=== PATIENT | male | born 1990 | race Caucasian/White ===

== ENCOUNTER 2020-02-08 12:38 | Observation (INO) ==
[2020-02-08 13:34] LABS: Basophils % 0.4 %; Eosinophils % 0.1 %; Hematocrit 44.4 % (37.5-50.1); Hemoglobin 14.5 g/dL (12.9-16.9); Immature Granulocytes % 0.4 % (0-4); Lymphocytes # 1.2 K/mcL (0.6-4.6); Lymphocytes % 11.5 %; Mean Corpuscular HGB Conc 32.7 g/dL (31.6-35.5); Mean Corpuscular Hemoglobin 26.9 pg (28.0-33.3); Mean Corpuscular Volume 82.2 fL (83.0-100.0); Mean Platelet Volume 9.1 fL (9.4-12.4); Monocytes # 0.2 K/mcL (0.0-1.3); Monocytes % 1.8 %; Platelet Count 335 K/mcL (140-400); Red Cell Distribution Width 13.1 % (11.5-14.5); Segmented Neutrophils % 85.8 %; White Blood Count 10.5 K/mcL (4.3-11.1)
[2020-02-08 13:52] LABS: Alanine Aminotransferase 15 Units/L (7-52); Albumin 4.2 g/dL (3.5-5.7); Albumin/Globulin Ratio 1.6 (1.1-2.2); Alkaline Phosphatase 60 Units/L (34-104); Amylase 37 Units/L (29-103); Aspartate Amino Transferase 17 Units/L (13-39); BUN/Creatinine Ratio 11 (6-26); Bilirubin,Direct 0.1 mg/dL (0.0-0.2); Bilirubin,Indirect 0.8 mg/dL (0.0-1.0); Bilirubin,Total 0.9 mg/dL (0.3-1.0); Blood Urea Nitrogen 10 mg/dL (6-20); Calcium 9.5 mg/dL (8.6-10.3); Carbon Dioxide 29 mEq/L (23-29); Chloride 103 mEq/L (98-107); Globulin 2.6 g/dL (2.4-3.5); Glucose 157 mg/dL (70-105); Lipase 5 Units/L (11-82); Osmolality,Calculated 286 (280-300); Potassium 3.6 mEq/L (3.5-5.1); Sodium 137 mEq/L (136-145); Total Protein 6.8 g/dL (6.4-8.9); eGFR For African Americans > 60 (> 60); eGFR For Non-African Americans > 60 (> 60)
[2020-02-08] MEDS ORDERED: Ketorolac 30 MG/ML VIAL IM ONE (14:27)
[2020-02-08] MEDS ORDERED: Naloxone 0.4 MG/ML INJ IVP PRN (16:34)
[2020-02-08] MEDS: Nicotine 21 MG PATCH.TD24 TD SCH (16:46)
[2020-02-08] MEDS: Acetaminophen 325 MG TABLET PO PRN (17:36)
[2020-02-08] MEDS: hydrOXYzine pamoate 25 MG CAPSULE PO PRN (18:28)
[2020-02-08] MEDS: Ibuprofen 400 MG TABLET PO PRN (18:28)
[2020-02-08] MEDS: Ondansetron 4 MG/2 ML VIAL IVP PRN (18:29)
[2020-02-08] MEDS: polyethylene glycoL 3350 17 GM POWD.PACK PO SCH (18:29)
[2020-02-08] MEDS: Bisacodyl 10 MG RECTAL SUPPOSITORY RC SCH (18:30)
[2020-02-08] MEDS: Ringers Solution, Lactated 1,000 ML IVC SCH (18:31)
[2020-02-08] MEDS ORDERED: Sennosides 8.6 MG TABLET PO ONE (19:56)
[2020-02-08] MEDS ORDERED: Ketorolac 15 MG/ML VIAL IVP ONE (19:57)
[2020-02-08] MEDS ORDERED: tiZANidine 4 MG TABLET PO ONE (20:47)
[2020-02-08] MEDS ORDERED: Milk and Molasses Enema 200 ML RC ONE (21:00)
[2020-02-08] MEDS ORDERED: *HR* Promethazine 25 MG/ML VIAL IVP ONE (22:57)
[2020-02-09 00:39] LABS: Basophils % 0.2 %; Hemoglobin 15.6 g/dL (12.9-16.9); Immature Granulocytes % 0.5 % (0-4); Lymphocytes # 1.9 K/mcL (0.6-4.6); Lymphocytes % 9.5 %; Mean Corpuscular HGB Conc 32.5 g/dL (31.6-35.5); Mean Corpuscular Hemoglobin 26.7 pg (28.0-33.3); Mean Corpuscular Volume 82.1 fL (83.0-100.0); Mean Platelet Volume 9.6 fL (9.4-12.4); Monocytes # 0.6 K/mcL (0.0-1.3); Neutrophils # 17.2 K/mcL (1.6-8.9); Platelet Count 412 K/mcL (140-400); Red Blood Count 5.85 M/mcL (4.19-5.50); Red Cell Distribution Width 13.1 % (11.5-14.5); Segmented Neutrophils % 86.8 %
[2020-02-09 00:41] LABS: White Blood Count 19.8 K/mcL (4.3-11.1)
[2020-02-09 00:50] LABS: Prothrombin Time 11.4 Seconds (9.4-12.1)
[2020-02-09 00:58] LABS: BUN/Creatinine Ratio 14 (6-26); Blood Urea Nitrogen 12 mg/dL (6-20); Calcium 9.5 mg/dL (8.6-10.3); Carbon Dioxide 25 mEq/L (23-29); Chloride 102 mEq/L (98-107); Glucose 119 mg/dL (70-105); Magnesium 1.9 mg/dL (1.6-2.6); Osmolality,Calculated 287 (280-300); Potassium 3.4 mEq/L (3.5-5.1); Sodium 138 mEq/L (136-145); eGFR For African Americans > 60 (> 60); eGFR For Non-African Americans > 60 (> 60)
[2020-02-09] MEDS: Ibuprofen 400 MG TABLET PO PRN (02:49)
[2020-02-09] MEDS: hydrOXYzine pamoate 25 MG CAPSULE PO PRN (02:49)
[2020-02-09] MEDS: Acetaminophen 325 MG TABLET PO PRN (07:53)
[2020-02-09] MEDS: Bisacodyl 10 MG RECTAL SUPPOSITORY RC SCH ×4 (07:54→21:06)
[2020-02-09] MEDS: polyethylene glycoL 3350 17 GM POWD.PACK PO SCH (07:54)
[2020-02-09] MEDS: Nicotine 21 MG PATCH.TD24 TD SCH (07:54)
[2020-02-09] MEDS: Ondansetron 4 MG/2 ML VIAL IVP PRN (08:50)
[2020-02-09] MEDS: Ringers Solution, Lactated 1,000 ML IVC SCH (08:52)
[2020-02-09] MEDS ORDERED: Morphine Sulfate 2 MG/ML SYRINGE IVP ONE (09:19)
[2020-02-09] MEDS ORDERED: Methylnaltrexone 12 MG/0.6 ML SYRINGE SQ ONE (09:24)
[2020-02-09] MEDS ORDERED: Lidocaine 4% CREAM (LMX) 5 GM TP PRN (09:26)
[2020-02-09] MEDS: *HR* LORazepam 2 MG/ML VIAL IVP PRN ×2 (10:20→16:35)
[2020-02-09] MEDS: Milk and Molasses Enema 200 ML RC SCH ×3 (11:15→21:06)
[2020-02-09 11:52] LABS: Estimated Average Glucose 131 mg/dl
[2020-02-10] MEDS: *HR* LORazepam 2 MG/ML VIAL IVP PRN (00:24)
[2020-02-10] MEDS: Milk and Molasses Enema 200 ML RC SCH ×2 (00:43→07:49)
[2020-02-10 05:33] LABS: Hematocrit 49.9 % (37.5-50.1); Hemoglobin 16.6 g/dL (12.9-16.9); Mean Corpuscular HGB Conc 33.3 g/dL (31.6-35.5); Mean Corpuscular Hemoglobin 26.7 pg (28.0-33.3); Mean Corpuscular Volume 80.2 fL (83.0-100.0); Mean Platelet Volume 9.6 fL (9.4-12.4); Platelet Count 426 K/mcL (140-400); Red Blood Count 6.22 M/mcL (4.19-5.50); Red Cell Distribution Width 13.4 % (11.5-14.5); White Blood Count 17.6 K/mcL (4.3-11.1)
[2020-02-10 05:53] LABS: BUN/Creatinine Ratio 18 (6-26); Blood Urea Nitrogen 15 mg/dL (6-20); Calcium 10.2 mg/dL (8.6-10.3); Carbon Dioxide 25 mEq/L (23-29); Chloride 97 mEq/L (98-107); Glucose 109 mg/dL (70-105); Osmolality,Calculated 277 (280-300); Potassium 3.8 mEq/L (3.5-5.1); Sodium 133 mEq/L (136-145); eGFR For African Americans > 60 (> 60); eGFR For Non-African Americans > 60 (> 60)
[2020-02-10] MEDS: Bisacodyl 10 MG RECTAL SUPPOSITORY RC SCH (07:49)
[2020-02-10] MEDS: polyethylene glycoL 3350 17 GM POWD.PACK PO SCH (07:49)
[2020-02-10 08:06] VITALS: BP 156/96
[2020-02-10] MEDS: hydrOXYzine pamoate 25 MG CAPSULE PO PRN (08:39)
[2020-02-10] MEDS: Nicotine 21 MG PATCH.TD24 TD SCH (08:41)
[2020-02-10] MEDS ORDERED: *HR* Buprenorphine HCl 2 MG SUBLINGUAL TABLET SL ONE (10:00)
== END 2020-02-10 12:34 | disposition home or self-care (01) ==
LOC: 3BNU 12:38 → EMEROOARM 12:38 → SUATTDRO 16:20 → 3BNU 17:47
PROVIDERS: ADMIT Internal Medicine; ATTEND Internal Medicine

== ENCOUNTER 2020-02-11 02:32 | Observation (INO) ==
[2020-02-11] MEDS ORDERED: Ondansetron 4 MG/2 ML VIAL IVP ONE (02:45)
[2020-02-11] MEDS ORDERED: 0.9 % Sodium Chloride 1,000 ML IV ONE ×2 (02:45→04:39)
[2020-02-11] MEDS ORDERED: Aspirin 81 MG TAB.CHEW PO ONE (03:11)
[2020-02-11 03:13] LABS: Basophils # 0.1 K/mcL (0.0-0.2); Basophils % 0.3 %; Eosinophils % 0.1 %; Hemoglobin 17.3 g/dL (12.9-16.9); Immature Granulocytes % 0.5 % (0-4); Lymphocytes % 19.6 %; Mean Corpuscular HGB Conc 33.9 g/dL (31.6-35.5); Mean Corpuscular Hemoglobin 26.9 pg (28.0-33.3); Mean Corpuscular Volume 79.3 fL (83.0-100.0); Mean Platelet Volume 9.2 fL (9.4-12.4); Monocytes # 1.7 K/mcL (0.0-1.3); Monocytes % 11.1 %; Neutrophils # 10.5 K/mcL (1.6-8.9); Platelet Count 428 K/mcL (140-400); Red Blood Count 6.43 M/mcL (4.19-5.50); Red Cell Distribution Width 13.4 % (11.5-14.5); Segmented Neutrophils % 68.4 %; White Blood Count 15.3 K/mcL (4.3-11.1)
[2020-02-11 03:37] LABS: BUN/Creatinine Ratio 17 (6-26); Blood Urea Nitrogen 18 mg/dL (6-20); Carbon Dioxide 24 mEq/L (23-29); Chloride 98 mEq/L (98-107); Glucose 110 mg/dL (70-105); Magnesium 2.3 mg/dL (1.6-2.6); Osmolality,Calculated 281 (280-300); Potassium 3.6 mEq/L (3.5-5.1); Sodium 134 mEq/L (136-145); Troponin I < 0.03 ng/mL (< 0.04); eGFR For African Americans > 60 (> 60); eGFR For Non-African Americans > 60 (> 60)
[2020-02-11] MEDS ORDERED: Piperacillin/Tazobactam 3.375 GM in 0.9 % Sodium Chloride Mini Bag 100 ML IVPB ONE (04:38)
[2020-02-11] MEDS ORDERED: Vancomycin 1,500 MG/265 ML IV.SOLN IVPB ONE (04:38)
[2020-02-11] MEDS ORDERED: Isovue-370 500 ML BOTTLE IVP ONE (05:15)
[2020-02-11 09:56] LABS: C-Reactive Protein < 5 mg/L (Less than 10)
[2020-02-11] MEDS ORDERED: Mag Hydrox/Al Hydrox/Simeth 30 ML UDC PO PRN (10:29)
[2020-02-11] MEDS ORDERED: Acetaminophen 325 MG TABLET PO PRN (10:29)
[2020-02-11] MEDS ORDERED: *HR* Promethazine 25 MG/ML VIAL IVP PRN (10:29)
[2020-02-11] MEDS ORDERED: Naloxone 0.4 MG/ML INJ IVP PRN (10:29)
[2020-02-11] MEDS ORDERED: MOM Conc 10 ML UD.LIQ PO PRN (10:29)
[2020-02-11] MEDS ORDERED: Ondansetron 4 MG/2 ML VIAL IVP PRN (10:29)
[2020-02-11] MEDS ORDERED: Perflutren Lipid Microsphere 1.3 ML in 0.9 % Sodium Chloride 8.7 ML IVP PRN (10:56)
[2020-02-11] MEDS: hydrOXYzine pamoate 25 MG CAPSULE PO PRN ×2 (10:58→18:18)
[2020-02-11] MEDS: *HR* Buprenorphine HCl 2 MG SUBLINGUAL TABLET SL SCH (12:08)
[2020-02-11] MEDS: Piperacillin/Tazobactam 3.375 GM in 0.9 % Sodium Chloride Mini Bag 100 ML IVPB SCH (16:09)
[2020-02-11] MEDS: Nicotine 21 MG PATCH.TD24 TD SCH (16:09)
[2020-02-11] MEDS: *HR* Heparin 5,000 UNIT/ML VIAL SQ SCH (16:11)
[2020-02-11] MEDS: Bisacodyl 10 MG RECTAL SUPPOSITORY RC SCH (20:47)
[2020-02-11] MEDS ORDERED: Vancomycin (wt based) 1,000 MG VIAL IVPB SCH (21:00)
[2020-02-12] MEDS: Piperacillin/Tazobactam 3.375 GM in 0.9 % Sodium Chloride Mini Bag 100 ML IVPB SCH
[2020-02-12] MEDS: hydrOXYzine pamoate 25 MG CAPSULE PO PRN ×2 (00:01→08:56)
[2020-02-12 04:31] LABS: Basophils # 0.1 K/mcL (0.0-0.2); Basophils % 0.9 %; Eosinophils # 0.1 K/mcL (0.0-0.6); Eosinophils % 0.8 %; Hematocrit 48.4 % (37.5-50.1); Hemoglobin 15.6 g/dL (12.9-16.9); Immature Granulocytes % 0.3 % (0-4); Lymphocytes # 3.2 K/mcL (0.6-4.6); Lymphocytes % 32.3 %; Mean Corpuscular HGB Conc 32.2 g/dL (31.6-35.5); Mean Corpuscular Hemoglobin 26.1 pg (28.0-33.3); Mean Corpuscular Volume 81.1 fL (83.0-100.0); Mean Platelet Volume 9.2 fL (9.4-12.4); Monocytes # 1.1 K/mcL (0.0-1.3); Monocytes % 10.9 %; Neutrophils # 5.4 K/mcL (1.6-8.9); Platelet Count 357 K/mcL (140-400); Red Blood Count 5.97 M/mcL (4.19-5.50); Red Cell Distribution Width 13.3 % (11.5-14.5); Segmented Neutrophils % 54.8 %; White Blood Count 9.8 K/mcL (4.3-11.1)
[2020-02-12 04:49] LABS: BUN/Creatinine Ratio 13 (6-26); Blood Urea Nitrogen 12 mg/dL (6-20); Carbon Dioxide 24 mEq/L (23-29); Chloride 103 mEq/L (98-107); Glucose 106 mg/dL (70-105); Osmolality,Calculated 280 (280-300); Potassium 3.7 mEq/L (3.5-5.1); Sodium 135 mEq/L (136-145); eGFR For African Americans > 60 (> 60); eGFR For Non-African Americans > 60 (> 60)
[2020-02-12] MEDS ORDERED: Vancomycin 1,250 MG/262.5 ML IV.SOLN IVPB SCH (05:00)
[2020-02-12] MEDS: *HR* Heparin 5,000 UNIT/ML VIAL SQ SCH (05:42)
[2020-02-12 07:29] VITALS: BP 132/83
[2020-02-12] MEDS ORDERED: Perflutren Lipid Microsphere 1.3 ML in 0.9 % Sodium Chloride 8.7 ML IVP PRN (07:36)
[2020-02-12] MEDS ORDERED: 0.9 % Sodium Chloride 1,000 ML IVC SCH (07:45)
[2020-02-12] MEDS: *HR* Buprenorphine HCl 2 MG SUBLINGUAL TABLET SL SCH (08:49)
[2020-02-12] MEDS: Nicotine 21 MG PATCH.TD24 TD SCH (08:54)
[2020-02-12] MEDS: Bisacodyl 10 MG RECTAL SUPPOSITORY RC SCH (08:54)
[2020-02-12] MEDS ORDERED: Hydrocortisone Acetate 25 MG RECTAL SUPPOSITORY RC SCH (09:00)
[2020-02-12] MEDS ORDERED: polyethylene glycoL 3350 17 GM POWD.PACK PO SCH (09:00)
[2020-02-12] MEDS ORDERED: Aminoglycoside Consult 1 EACH MC ONE (11:33)
== END 2020-02-12 11:34 | disposition home or self-care (01) ==
LOC: EMEROOARM 02:32 → 3BNU 02:32
PROVIDERS: ADMIT Internal Medicine; ATTEND Internal Medicine